=== PATIENT | male | born 1950 | race Caucasian/White ===

== ENCOUNTER 2017-02-21 07:58 | Day surgery (SDC) | payer OTHER ==
--- NOTE | ~2017-02-21 | EGD ---
EGD REPORT [facility] [address] [place]. [address] NAME: BA CAMEJO : [birth year] STATUS : REG [facility] [place] PAT#: [id number] AGE: 66 ADM/REG DATE : 02/21/17 MR#: [id number] REPORT SERV DATE: 02/21/17 DICTATED BY: BA ZHAO DATE: 02/21/17 REPORT STATUS : Draft TRANSCRIBED BY: [employer] DATE: 02/21/17 Endoscopy Center Patient Name: Ba Camejo Date of : 1950 Attending MD: BA ZHAO MD Procedure Date No Time: 02/21/2017 Procedure: Colonoscopy Indications: Screening for colorectal malignant neoplasm Referring MD: SONIA DOSHI Medicines: Monitored Anesthesia Care Complications: No immediate complications. Procedure: Pre-Anesthesia Assessment: - ASA Grade Assessment: III - A patient with severe systemic disease. After I obtained informed consent, the scope was passed under direct vision. Throughout the procedure, the patient's blood pressure, pulse, and oxygen saturations were monitored continuously. The CF [id number] was introduced through the anus and advanced to the cecum, identified by appendiceal orifice and ileocecal valve. The colonoscopy was performed with moderate difficulty due to significant looping and the patient's body habitus. Successful completion of the procedure was aided by applying abdominal pressure. The patient tolerated the procedure fairly well. The quality of the bowel preparation was adequate. PROCEDURE TIME 36 MINUTES Findings: The digital rectal exam was normal. Pertinent negatives include no palpable rectal lesions. Hemorrhoids were found during retroflexion and were mild. A sessile polyp was found in the ascending colon. The polyp was 8 mm in size. The polyp was removed with a cold snare. Resection and retrieval were complete. A sessile polyp was found in the ascending colon. The polyp was 6 mm in size. The polyp was removed with a jumbo cold forceps. Resection and retrieval were complete. Two sessile polyps were found in the transverse colon. The polyps were 8 to 10 mm in size. These polyps were removed with a cold snare. Resection and retrieval were complete. A sessile polyp was found in the descending colon. The polyp was 7 mm in size. The polyp was removed with a jumbo cold forceps. Resection and retrieval were complete. A sessile polyp was found in the descending colon. The polyp was 20 mm in size. Polyp was 40 cm from the anus. The polyp was removed piecemeal EGD REPORT [address] [address] NAME: BA CAMEJO : [birth year] STATUS : REG [facility] [place] PAT#: [id number] AGE: 66 ADM/REG DATE : 02/21/17 MR#: [id number] REPORT SERV DATE: 02/21/17 DICTATED BY: BA ZHAO DATE: 02/21/17 REPORT STATUS : Draft TRANSCRIBED BY: [employer] DATE: 02/21/17 with a saline injection-lift technique with 1.5 cc of saline using a hot snare. Some residual polyp was cauterized using the snare tip. Resection was complete, but the polyp tissue was only partially retrieved. Area was successfully injected with 2 mL Mirtha ink for tattooing. Estimated blood loss was minimal. Two sessile polyps were found in the rectum. The polyps were 4 to 5 mm in size. These polyps were removed with a jumbo cold forceps. Resection and retrieval were complete. Hemorrhoids were found during retroflexion and were moderate. Impression: - Hemorrhoids. - One 8 mm polyp in the ascending colon. Resected and retrieved. - One 6 mm polyp in the ascending colon. Resected and retrieved. - Two 8 to 10 mm polyps in the transverse colon. Resected and retrieved. - One 7 mm polyp in the descending colon. Resected and retrieved. - One 20 mm polyp in the descending colon. Complete resection. Partial retrieval. Injected. - Two 4 to 5 mm polyps in the rectum. Resected and retrieved. - Hemorrhoids. Recommendation: - Patient has a contact number available for emergencies. The signs and symptoms of potential delayed complications were discussed with the patient. Return to normal activities tomorrow. Written discharge instructions were provided to the patient. - Regular diet. - Continue present medications. - Await pathology results. - Repeat colonoscopy in 3 months to review the polypectomy site. - Return to GI clinic in 1 month. Procedure Code(s): --- Professional --- 04689, Colonoscopy, flexible, proximal to splenic flexure; with removal of tumor(s), polyp(s), or other lesion(s) by snare technique 50486, 59, Colonoscopy, flexible, proximal to splenic flexure; with biopsy, single or multiple 53028, Colonoscopy, flexible, proximal to splenic flexure; with directed submucosal injection(s), any substance EGD REPORT [address] [place]. [address] NAME: BA CAMEJO : [birth year] STATUS : REG [facility] [place] PAT#: [id number] AGE: 66 ADM/REG DATE : 02/21/17 MR#: [id number] REPORT SERV DATE: 02/21/17 DICTATED BY: BA ZHAO DATE: 02/21/17 REPORT STATUS : Draft TRANSCRIBED BY: [employer] DATE: 02/21/17 Diagnosis Code(s): --- Professional --- K64.9, Unspecified hemorrhoids K62.1, Rectal polyp D12.4, Benign neoplasm of descending colon D12.3, Benign neoplasm of transverse colon D12.2, Benign neoplasm of ascending colon Z12.11, Encounter for screening for malignant neoplasm of colon CPT copyright 2013 [employer]. All rights reserved. The codes documented in this report are preliminary and upon industrial mechanic review may be revised to meet current compliance requirements. BA ZHAO MD 02/21/2017 10:33 AM This report has been signed electronically. Number of Addenda: 0 Note Initiated On: 02/21/2017 9:32 AM Scope Withdrawal Time 0 hours 36 minutes 45 seconds [address] [place] [address]
--- NOTE | ~2017-02-21 | EGD ---
EGD REPORT [facility] [address] [address] NAME: BA CAMEJO : [birth year] STATUS : REG [facility] [place] PAT#: [id number] AGE: 66 ADM/REG DATE : 02/21/17 MR#: [id number] REPORT SERV DATE: 02/21/17 DICTATED BY: BA ZHAO DATE: 02/21/17 REPORT STATUS : Draft TRANSCRIBED BY: [facility] DATE: 02/21/17 Endoscopy Center Patient Name: Ba Camejo Date of : 1950 Attending MD: BA ZHAO MD Procedure Date No Time: 02/21/2017 Procedure: Upper GI endoscopy Indications: Epigastric abdominal pain, Unexplained chest pain Referring MD: SONIA DOSHI Medicines: Monitored Anesthesia Care Complications: No immediate complications. Procedure: Pre-Anesthesia Assessment: - ASA Grade Assessment: III - A patient with severe systemic disease. After obtaining informed consent, the endoscope was passed under direct vision. Throughout the procedure, the patient's blood pressure, pulse, and oxygen saturations were monitored continuously. The GIF [id number] was introduced through the mouth, and advanced to the second part of duodenum. The upper GI endoscopy was accomplished without difficulty. The patient tolerated the procedure well. Findings: The examined esophagus was normal. The entire examined stomach was normal. The cardia and gastric fundus were normal on retroflexion. The duodenal bulb and 2nd part of the duodenum were normal. Biopsies were taken with a cold forceps for histology. Impression: - Normal esophagus. - Normal stomach. - Normal duodenal bulb and 2nd part of the duodenum. Biopsied. Recommendation: - Await pathology results. - Follow an antireflux regimen. Procedure Code(s): --- Professional --- 69484, Esophagogastroduodenoscopy, flexible, transoral; with biopsy, single or multiple Diagnosis Code(s): --- Professional --- R10.13, Epigastric pain R07.9, Chest pain, unspecified EGD REPORT [facility] [address] [place]. [address] NAME: BA CAMEJO : [birth year] STATUS : REG [facility] [place] PAT#: [id number] AGE: 66 ADM/REG DATE : 02/21/17 MR#: [id number] REPORT SERV DATE: 02/21/17 DICTATED BY: BA ZHAO DATE: 02/21/17 REPORT STATUS : Draft TRANSCRIBED BY: [employer] DATE: 02/21/17 CPT copyright 2013 [employer]. All rights reserved. The codes documented in this report are preliminary and upon secretary receptionist review may be revised to meet current compliance requirements. BA ZHAO MD 02/21/2017 9:48 AM This report has been signed electronically. Number of Addenda: 0 Note Initiated On: 02/21/2017 9:33 AM Scope Withdrawal Time 0 hours 0 minutes 0 seconds [address] [facility] [place] [address]
[~2017-02-21 07:58] MED LIST: ALKA SELTZE PO; ALKA-SELTZE1 PO; ALKA-SELTZER PO; ASA5GR PO; ASAB PO; ASABAYER PO; AT25 PO; ATROVASTATIN PO; CELEXA10 PO; CELEXA20 PO; CO Q-10200 MG PO; FISH-EPA1000 MG PO; LIPITOR40 PO; LIPITOR80 MG PO; LOP50 PO; NIASPAN500 PO; NITROQUICK0.4 MG SL; OCEAN NAS; PLAVIX PO; PRAVACHOL40 MG PO; PRIN10 PO; PROBIOTIC PO; PROTONIX PO; TUMSROLL PO; ZESTRIL10 MG PO
[2017-06-01] MEDS ORDERED: TUMSROLL PO (12:49)
[2017-06-01] MEDS ORDERED: MEDS (13:18)
== END 2017-02-21 23:59 | disposition home or self-care (01) ==
LOC: DMU 07:58
PROVIDERS: Internal Medicine Gastroenterology
PROC: 0DB68ZX Excision of Stomach, Via Natural or Artificial Opening Endoscopic, Diagnostic (ICD-10-PCS; 2017-02-21)
PROC: 3E0H8GC Introduction of Other Therapeutic Substance into Lower GI, Via Natural or Artificial Opening Endoscopic (ICD-10-PCS; 2017-02-21)
PROC: 0DBK8ZZ Excision of Ascending Colon, Via Natural or Artificial Opening Endoscopic (ICD-10-PCS; principal; 2017-02-21 09:30)
PROC: 0DBP8ZZ Excision of Rectum, Via Natural or Artificial Opening Endoscopic (ICD-10-PCS; 2017-02-21 09:30)
PROC: 0DBM8ZZ Excision of Descending Colon, Via Natural or Artificial Opening Endoscopic (ICD-10-PCS; 2017-02-21 09:30)
PROC: 0DBL8ZZ Excision of Transverse Colon, Via Natural or Artificial Opening Endoscopic (ICD-10-PCS; 2017-02-21 09:30)
DX: Z12.11 Encounter for screening for malignant neoplasm of colon (principal); D12.3 Benign neoplasm of transverse colon; D12.2 Benign neoplasm of ascending colon; K62.1 Rectal polyp; K64.8 Other hemorrhoids; R10.13 Epigastric pain; I10 Essential (primary) hypertension; I73.9 Peripheral vascular disease, unspecified; K21.9 Gastro-esophageal reflux disease without esophagitis; I25.10 Atherosclerotic heart disease of native coronary artery without angina pectoris; F17.200 Nicotine dependence, unspecified, uncomplicated; Z88.5 Allergy status to narcotic agent
CPT/HCPCS: 82962; 88305